=== PATIENT | male | born 1975 | race Caucasian/White ===

== ENCOUNTER 2022-12-27 05:48 | Day surgery (SDC) | payer MEDICAID, SELFPAY ==
[2022-12-27] VITALS (7 sets, daily range): BP systolic 100–130; BP diastolic 72–97; PULSE 72–80; RESP 16–18; TEMP 36.6–37; O2SAT 97–100; BMI 26.8
--- NOTE | 2022-12-27 06:22 | EKG12_ITS ---
Test Reason : PRE-OP Blood Pressure : / mmHG Vent. Rate : 077 BPM Atrial Rate : 077 BPM P-R Int : 154 ms QRS Dur : 092 ms QT Int : 380 ms P-R-T Axes : 029 051 034 degrees QTc Int : 430 ms Normal sinus rhythm Normal ECG When compared with ECG of 23-AUG-2007 18:34, No significant change was found Confirmed by ODELL WOODWARD, JUAN CARLOS ([id number]), pictures editor ZULEMA HUBBARD ([id number]) on 01/01/2023 8:55:52 AM Referred By: Luis Eastman Confirmed By:JUAN CARLOS BAIN MD
[2022-12-27] MEDS: Lactated Ringers 1,000 ML 15 ML IV (07:09)
--- NOTE | 2022-12-27 07:20 | HP.PCM_ITS ---
History and Physical Date of Admission: 12/27/22 Intake Vital Signs ? 12/04/2313:46 BP 124/85 H Blood Pressure Location Rt brachial Position Sitting Respiration 17 Pulse 82 Pulse Source Monitor Temp 97.8 F Temp Source Temporal Pulse Oximetry (%) 97 Oxygen Delivery Method room air Intake Visit Reasons:?Hernia Chief Complaint: hernia Is patient in pain?: No Allergies No Known Allergies Allergy (Unverified 12/04/22 14:47) Medications NK? 12/04/22 [History Confirmed 12/04/22] PFSH Social History?(Updated 12/04/22 @ 14:46 by Siri Figueroa) Smoking Status:? Former smoker alcohol intake:? current substance use type:? does not use HPI HPI HPI: Patient is a 47-year-old male here with umbilical hernia.? He says it is bothering him whenever he does any heavy lifting or if he eats too much.? His only pain is at the umbilicus and it does not radiate.? He denies any nausea or vomiting or fevers or chills.? He says it has been there for a few months. ROS General General: No weight change, appetite, fatigue, colon cancer, breast cancer or weakness HEENT HEENT: No difficulty swallowing, eye injury, eye surgery, swollen glands or hoarseness Endo Endocrine: No thyroid disease, diabetes mellitus, thyroid cancer, Hair loss, heat intolerance or cold intolerance Skin Skin: No rash or changing moles Musc Musculoskeletal: No back problems, arthritis, rheumatoid arthritis, gout or joint pain Cardio Cardiovascular: No murmur, pacemaker, heart disease, atrial fibrillation, high blood pressure, heart attack, heart stent, palpitations, shortness of breat with exertion or chest pain Psych Psychiatric: No depression, anxiety or hearing voices Resp Respiratory: No shortness of breath, No sleep apnea, No cough, No COPD, No asthma, No emphysema and No wheezing Gastro Gastrointestinal: No abdominal pain, No nausea or vomiting, No diarrhea, No constipation, No blood in stool, No acid reflux, No hemorrhoids, No ulcers, No gallbladder problem and No black,tarry stools Alexi Hematologic: No blood thinners, No blood disorders, No bleeding, No anemia and No blood clots Neuro Neurologic: No system reviewed and no additional complaints, except as documented, No as per HPI, No abnormal gait, No abnormal hearing, No abnormal movements, No abnormal speech, No behavioral changes, No burning sensations, No confusion, No convulsions, No disequilibrium, No dizziness, No localized weakness, No frequent falls, No headache(s), No lack of coordination, No loss of vision, No memory loss, No numbness, No other visual disturbances, No radicular pain, No restless legs, No sensory deficit, No syncope, No tingling, No tremor(s), No weakness and No other Exam Const General: cooperative Orientation: alert and oriented x3 HENMT Head: normal to inspection Neck Neck: normal visual inspection and full ROM Chest Chest palpation & inspection: normal inspection of the chest Resp Effort & Inspection: normal respiratory effort Auscultation: clear to auscultation bilaterally Cardio Rate: regular rate Rhythm: regular rhythm GI Inspection: non-distended Palpation: soft, hernia umbilical and nontender Skin General: no rashes or lesions noted Neuro General: patient alert and patient oriented x3 Extrem General: full ROM Psych Appearance: grossly normal Mental Status: mental status grossly normal Assessment and Plan Assessment and Plan (1) Umbilical hernia: ?Status:?Acute ?Plan: Patient has a small umbilical hernia containing fat which is reducible.? I explained open umbilical hernia repair with possible mesh.? I explained that if the defect was over [address] mesh but if it was under 1 cm I would fix it with sutures.? I discussed the risks including not limited to bleeding, infection, injury to underlying organs.? Patient understands the risks and is willing to proceed with umbilical hernia repair with possible mesh. Luis Eastman MD Pager: [facility] [address] [place] [address], [address] [place] [address] Office: I have examined the patient and the H&P has been reviewed. There are no clinical changes since date of exam.
[2022-12-27] MEDS: Bupiv/Epi 0.25% 30 ML Vial (09:19)
[2022-12-27] MEDS: Cefazolin 2 GM in 0.9% Normal Saline 100 ML IV (09:19)
--- NOTE | 2022-12-27 09:21 | PCM.OPRPT ---
Report of Operation Date of Procedure: 12/27/22 Pre-Operative Diagnosis: Umbilical hernia Post-Operative Diagnosis: Umbilical hernia Surgery/Procedure Performed:: Umbilical hernia repair Description of Surgical Findings:: Umbilical hernia less than 1 cm Specimen's removed: None Description of Procedure: Patient was brought back to the operating room and MAC anesthesia was induced. The abdomen was prepped and draped in usual sterile fashion. A curvilinear incision was marked above the umbilicus. The incision was injected with local anesthetic and then incised using a scalpel. Sharp dissection was carried down to the hernia sac. It was reduced and the defect measured approximately 8 mm. The defect was closed with interrupted 0 Nurolon sutures. The subcutaneous tissue was irrigated and suctioned dry and then the skin was closed with a running 4-0 Monocryl suture. Steri-Strips and bandage were applied. Patient tolerated the procedure well was brought to PACU in stable condition. No mesh was utilized. Admit VTE Documentation VTE Mechan Device Prophylaxis: SCD's
--- NOTE | 2022-12-27 09:22 | EX.PCM.DISCH ---
Discharge Instructions Procedure Hernia Diet Discharge Diet: Light diet - advance as tolerated Activity Discharge Activity: May Not Drive (for 2-3 days or while taking narcotic pain meds.) and May Shower (with the bandage in place tomorrow) Lifting Restrictions: 20 pounds for 2 weeks. Additional Activity Instructions:: Climbing stairs is fine, walking is encouraged. Sitting in bed may be uncomfortable. Sitting up using your lateral muscles (sitting up sideways) is usually more comfortable. Do not drive, work heavy equipment of sign legal documents for 24 hours. Pain medications may cause nausea, you should typically eat light foods as you take your pain medications. Pain medications may also cause constipation. If you have difficulty with this, discuss with your doctor. Dressing / Incision Call your doctor if your incision/area has: Continuous Slow Oozing, Sudden Increased Bleeding, Increased Pain/ Swelling, Increased Redness and Foul Smelling Discharge Call your doctor if you observe: Fever of 101 or Higher Suture Line Care: Avoid Pulling/Pushing and Avoid Pinching/Bending Remove Dressing in: 2 days (Remove clear bandages in 2 days, remove Steri-Strips in 7 to 10 days.) Cleanse incision/area with: Soap & Water Follow Up Care Please Follow Up With: Luis Eastman MD When: Please call to schedule 2 week follow up appointment. [phone] Test Results: Test results from this visit will be discussed in further detail at your follow-up appointment, if applicable. Discharge Plan Admission Attending Provider: Luis Eastman Primary Care Provider: Care Physician,Laura Primary Instructions Additional Instructions / Restrictions: Alternate ibuprofen and Tylenol for pain. Discharge Orders/Prescriptions Prescriptions: No Action NK Referrals / Follow Up: Care Physician,No Primary [Primary Care Provider] - Disposition Disposition (needs filled in before D/C Order can be placed): Home, Self Care
== END 2022-12-27 10:10 | disposition home or self-care (01) ==
LOC: SDC 05:49 → AC 06:03
PROVIDERS: Referring Provider Surgery; Visit Provider Surgery
PROC: (CPT 49591; principal; 2022-12-27 09:20)
DX: K42.9 Umbilical hernia without obstruction or gangrene (principal); Z87.891 Personal history of nicotine dependence
CPT/HCPCS: 49591; 00830; 93005; J7120; J2405

== ENCOUNTER 2023-10-17 13:44 | Emergency (ER) | payer BC, MEDICAID, SELFPAY ==
[2023-10-17 13:46] VITALS: BP 148/109; PULSE 101; RESP 18; TEMP 36.8; O2SAT 100; BMI 23.4
--- NOTE | 2023-10-17 14:19 | RAD_ITS ---
HISTORY: chest pain. TECHNIQUE: XR Chest 1 View. COMPARISON: None. FINDINGS: CARDIOMEDIASTINAL BORDERS: Cardiac silhouette within normal limits in size. Mediastinal contour unremarkable. LUNGS: 9 mm nodular opacity of the right upper lobe. Mild hyperinflation and linear right basilar opacity, suggesting COPD and scarring. PLEURA: No pleural effusion or pneumothorax seen. OSSEOUS STRUCTURES: Unremarkable. RAD/Chest 1 View (Portable) IMPRESSION: Small right upper lobe opacity, possible pulmonary nodule or focus of infection. Recommend follow-up or CT. Electronically Signed: Shazia Wheeler MD at 14:58 EST ,
[2023-10-17 14:26] LABS: Absolute Lymphocyte Count 2.01 X10^3/uL (0.83-4.51); Absolute Neutrophil Count 3.8 X10^3/uL (2.0-7.7); Basophil# 0.05 X10^3/uL; Basophil% 0.8 % (0-1); Eosinophil# 0.08 X10^3/uL; Eosinophils% 1.2 % (0-5); Hematocrit 46.5 % (40-54); Hemoglobin 15.5 g/dL (13.0-16.5); Lymphocyte # 2.01 X10^3/ul (0.83-4.51); Mean Corp Hgb Conc 33.3 g/dL (32-36); Mean Corpuscular Volume 86.9 fL (80-94); Mean Platelet Vol. 9.4 fl (6.2-12.0); Monocyte# 0.57 X10^3/uL; Monocyte% 8.8 % (0-10); NRBC Flagged by Analyzer 0 % (0-5); Neutrophil # 3.76 X10^3/uL (2.7-7.7); Neutrophil % 57.9 % (47-70); Platelet Count 346 K/mm3 (150-450); RBC Distribution Width SD 41.1 fl (35.1-43.9); Red Blood Count 5.35 M/mm3 (4.6-6.2); White Blood Count 6.5 K/mm3 (4.4-11.0)
[2023-10-17 14:43] LABS: Anion Gap 6 (5-15); BUN 11 mg/dL (7-18); Calcium,Total 9.1 mg/dL (8.5-10.1); Chloride 106 mmol/L (98-107); Creatinine, Serum 0.91 mg/dL (0.70-1.30); EST Glomerular Filtration Rate 95 mL/min (>60); Est Glom Filt Rate - Afr Amer 114 mL/min (>60); Estimated Creatinine Clearance 110.15 ml/min; Glucose 93 mg/dL (74-106); Potassium 4.1 mmol/L (3.5-5.1); Sodium Level 140 mmol/L (136-145); Troponin-I HS (w/2H Reflex) 6 pg/mL (3.0-78.0)
[2023-10-17 15:00] VITALS: RESP 18
[2023-10-17 16:00] VITALS: RESP 18
[2023-10-17] MEDS: Ketorolac 15 MG/ML Vial IV (16:11)
--- NOTE | 2023-10-17 16:14 | EDS_ITS ---
HPI History of Present Illness Chief Complaint: Chest Pain Detail of Chief Complaint: Left-sided anterior chest pain Informant: patient Onset/Context/Timing Onset: Today Activity at onset: sudden Timing: Continuous Quality: Positive for Aching Location: Left Chest Current Severity: Mild Maximum Severity: Moderate Worsened By: Movement of Arm, Movement of Torso and Palpation; Not Worsened By Eating Relieved By: Nothing Associated Symptoms: Negative for Nausea, Vomiting, Diaphoresis, Dyspnea, Cough, Fever, Lightheadedness or Acid Reflux Narrative Narrative: Patient presents with left-sided chest pain. He has no risk factor for coronary disease. Nurse protocol was initiated. Patient is a non-smoker. There is no family history coronary disease. Pain is reproducible and worse with movement. P Prior Similar Symptoms: No Recent Illness/Hospitalization: No CVD Risk Factors: Negative for Hypertension, Diabetes, Hypercholesterolemia, Family History 1' </=55 or Smoking PE Risk Factors: Negative for Recent Travel/Surgery, Recent Immobilization, Prior DVT or PE, Cancer or OCP + Smoking + >/=35 TAD Risk Factors: Negative for Marfan's Syndrome, Hypertension or Family History PFSH PFSH Medical History Alcohol use Former smoker Umbilical hernia Wears glasses Home Medications naproxen 500 mg tablet 500 mg PO BID #14 tabs 10/17/23 [Rx Last Taken Unknown] Allergy/AdvReac Type Severity Reaction Status Date / Time No Known Allergies Allergy Verified 10/17/23 13:46 Surgical History Hx of hernia repair Social History Smoking Status: Former smoker alcohol intake: current substance use type: does not use ROS ROS ED Constitutional Constitutional ED: Denies chills, fever(s), subjective, sweats or weight loss Eyes Eyes: Reports none ENT ENT ED: Denies ear pain, rhinorrhea or sore throat Cardiovascular Cardiovascular: Reports as per HPI; Denies orthopnea or paroxysmal nocturnal dyspnea Respiratory/Chest Respiratory/Chest: Denies cough, dyspnea, dyspnea on exertion, orthopnea or paroxysmal nocturnal dyspnea Gastrointestinal Gastrointestinal: Denies abdominal pain, nausea or vomiting Genitourinary Genitourinary ED: Denies dysuria, hematuria or urinary frequency Musculoskeletal Musculoskeletal: Denies arthralgias, back pain, myalgias or neck pain Integumentary Reports other Details: Patient has a bruise noted lateral proximal left shoulder region. There is also discoloration inferior to the left clavicle. Neurologic Neurologic: Denies headache(s), paresthesias or weakness Psychiatric Psychiatric: Denies anxiety or depression Endocrine Endocrinology: Denies cold intolerance or heat intolerance Hematologic/Lymphatic Hematologic/Lymphatic: Reports other Details: Patient is not on an antithrombotic or anticoagulant. ; Denies easy bleeding or easy bruising EXAM Physical Exam Const Vital Signs: 10/17/23 13:46 10/17/23 14:10 10/17/23 14:10 Temperature 98.2 F Temperature Source Temporal Pulse Rate 101 H Respiratory Rate 18 Respiratory Effort Normal Non-Labored Blood Pressure 148/109 H Blood Pressure Mean 122 Pulse Ox 100 Oxygen Delivery Method Room Air Room Air Vital signs reveal elevated blood pressure and slight elevation in heart rate. Positive well nourished and well developed General Appearance ED: well developed and NAD HEENT Reports moist mucous membranes normocephalic and atraumatic Eyes PERRL and EOMs intact bilaterally General Eye ED: Negative for pale conjunctiva or scleral icterus Neck no lymphadenopathy, supple and no JVD Neck Narrative: Trachea is midline. Chest Wall palpation of chest normal; Negative for inspection of chest normal Chest Narrative: There is pain outpatient over the pectoralis major muscle on the left. There is slight discoloration. There is also a bruise noted proximal left shoulder. Resp normal respiratory effort and clear to auscultation bilaterally Cardio regular rate, regular rhythm, S1 normal heart sound, S2 normal heart sound and no murmurs GI normal to inspection, nondistended, normoactive bowel sounds, soft to palpation, non-tender, non-distended and no masses; Negative for hepatosplenomegaly Back/Spine no CVA tenderness Extremity normal to inspection Neuro oriented x3, CN's II-XII intact bilaterally and no sensory deficits noted Sensorium / Orientation: awake and alert Psych mental status grossly normal Skin no rashes or lesions noted and No no wounds Skin Narrative: Contusion as previously described MDM MDM MDM Narrative Medical decision making narrative: Nurse protocol for chest pain was initiated. In my opinion patient has muscular pain. He was treated with IV Toradol. Lab Data Attestation: I reviewed the patient's lab results. Lab results narrative: CBC is normal. BMP is normal. Troponin is normal. Labs: Laboratory Results - last 24 hr 10/17/23 10/17/23 13:50 16:15 WBC 6.5 RBC 5.35 Hgb 15.5 Hct 46.5 MCV 86.9 MCH 29.0 MCHC 33.3 RDW Std Deviation 41.1 RDW Coeff of Devyn 13.0 Plt Count 346 MPV 9.4 Immature Gran % (Auto) 0.300 Neut % (Auto) 57.9 Lymph % (Auto) 31.0 [place] % (Auto) 8.8 Eos % (Auto) 1.2 Baso % (Auto) 0.8 Absolute Neuts (auto) 3.8 Absolute Lymphs (auto) 2.01 Nucleated RBC % 0 Sodium 140 Potassium 4.1 Chloride 106 Carbon Dioxide 28.0 Anion Gap 6 BUN 11 Creatinine 0.91 Estim Creat Clear Calc 110.15 Est GFR (MDRD) Af Amer 114 Est GFR (MDRD) Non-Af 95 BUN/Creatinine Ratio 12.0 Glucose 93 Calcium 9.1 Troponin I High Sens 6 6 Radiography Chest X-Ray - ED: 1 View and Read by ED Physician (Chest x-ray reveals no acute pathology per my read. Cardiac silhouette and size normal. Lung parenchyma reveals no abnormality. Perihilar regions unremarkable.) Diagnostic Testing: Clinical Impression(s) from Imaging Studies Chest X-Ray 10/17/23 14:19 IMPRESSION: Small right upper lobe opacity, possible pulmonary nodule or focus of infection. Recommend follow-up or CT. Electronically Signed: Shazia Wheeler MD at 14:58 EST Reading Location ID and State: [facility] / [place] Tel , Service support , Reviewed radiology report. There is concern for small upper lobe opacity which may represent a nodule or focus of infection. Since patient's symptoms on the left and he is not febrile or hypoxic or have respiratory symptoms will have him follow-up with his primary care physician or referral to pulmonary if he does not. EKG Initial EKG: Attestation: I personally reviewed and interpreted this EKG as follows: Interpretation: Sinus Rhythm (Rate is 84 and EKG is normal.. CA interval is 146 ms per cures duration 88 ms. QT durations 354 ms. [place] is normal.) Treatment and Re-Evaluation :: Patient was reassessed at 1725. Patient has greater range of motion. His pain is diminished after IV Toradol. Plan is to discharge to home. 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 Disposition Disposition: Home, Self Care
[2023-10-17 16:18] LABS: Reflex Troponin-HS? (from REC) Y
[2023-10-17 17:00] VITALS: BP 132/77
[2023-10-17 17:03] LABS: Troponin-I HS 6 pg/mL (3.0-78.0)
== END 2023-10-17 17:40 | disposition home or self-care (01) ==
PROVIDERS: Emergency Provider Emergency Medicine; Visit Provider Emergency Medicine
DX: R00.0 Tachycardia, unspecified (principal); R03.0 Elevated blood-pressure reading, without diagnosis of hypertension; R07.89 Other chest pain; S40.012A Contusion of left shoulder, initial encounter; Z87.891 Personal history of nicotine dependence; X58.XXXA Exposure to other specified factors, initial encounter
CPT/HCPCS: 71045; 80048; 84484; 85025; 93005; 96374; 99284; A4216